=== PATIENT | male | born 1990 | race Caucasian/White ===

== ENCOUNTER 2017-02-19 21:20 | Emergency (ER) | payer SELFPAY ==
[2017-02-19 21:32] VITALS: TEMP 98.2
--- NOTE | 2017-02-19 22:56 | ED PDOC ---
Arrival/HPI - General Chief Complaint: Substance Abuse Time Seen by Provider: 02/19/17 22:17 Historian: Patient - History of Present Illness Narrative History of Present Illness (Text): 02/19/17 22:49 Tootie Dobbins is a 26 year old male, whose past medical history includes substance , who presents to the ED after injecting MDMA earlier tonight. Patient states he feels very hyper and is unable to settle down. Patient denies any fever, chills, chest pain, shortness of breath, abdominal pain, nausea, vomiting, diarrhea, back pain, neck pain, headache, dizziness, or any other complaints. Time/Duration: Other (tonight) Symptom Onset: Gradual Symptom Course: Unchanged Activities at Onset: Rest, Light Context: Home Past Medical History - Provider Review Nursing Documentation Reviewed: Yes - Infectious Disease Hx of Infectious Diseases: None - Psychiatric Hx Anxiety: No Hx Bipolar Disorder: No Hx Depression: No Hx Post Traumatic Stress Disorder: No Hx Schizophrenia: No Hx Substance Use: No - Anesthesia Hx Anesthesia: No Hx Anesthesia Reactions: No Hx Malignant Hyperthermia: No Family/Social History - Physician Review Nursing Documentation Reviewed: Yes Family/Social History: Unknown Family HX Smoking Status: Never Smoked Hx Alcohol Use: No Hx Substance Use: No Allergies/Home Meds Allergies/Adverse Reactions: Allergies No Known Allergies Allergy (Verified 09/29/15 11:50) Review of Systems - Physician Review All systems were reviewed & negative as marked: Yes - Review of Systems Constitutional: Normal. absent: Fevers Eyes: Normal ENT: Normal Respiratory: Normal. absent: SOB, Cough Cardiovascular: Normal. absent: Chest Pain Gastrointestinal: Normal. absent: Abdominal Pain, Diarrhea, Nausea, Vomiting Genitourinary Male: Normal. absent: Dysuria, Frequency, Hematuria, Urinary Output Changes Musculoskeletal: Normal. absent: Back Pain, Neck Pain Skin: Normal. absent: Rash Neurological: Normal. absent: Headache, Dizziness Endocrine: Normal Hemo/Lymphatic: Normal Psychiatric: Other (+substance abuse) Physical Exam Vital Signs Reviewed: Yes Vital Signs Temp Pulse Resp BP Pulse Ox 02/20/17 02:43 91 H 22 110/58 L 98 02/20/17 01:22 98 H 20 104/50 L 98 02/20/17 00:58 100 H 22 103/61 98 02/20/17 00:30 116 H 18 98 02/19/17 23:01 73 14 138/87 99 06/27/17 21:31 98.2 F 136 H 22 126/71 98 Temperature: Afebrile Blood Pressure: Normal Pulse: Tachycardic Respiratory Rate: Normal Appearance: Positive for: Well-Appearing, Non-Toxic, Comfortable Pain Distress: None Mental Status: Positive for: Alert and Oriented X 3 - Systems Exam Head: Present: Atraumatic, Normocephalic Pupils: Present: PERRL Extroacular Muscles: Present: EOMI Conjunctiva: Present: Normal Mouth: Present: Moist Mucous Membranes Neck: Present: Normal Range of Motion Respiratory/Chest: Present: Clear to Auscultation, Good Air Exchange. No: Respiratory Distress, Accessory Muscle Use Cardiovascular: Present: Normal S1, S2, Tachycardic. No: Murmurs Abdomen: Present: Normal Bowel Sounds. No: Tenderness, Distention, Peritoneal Signs Back: Present: Normal Inspection Upper Extremity: Present: Normal Inspection. No: Cyanosis, Edema Lower Extremity: Present: Normal Inspection. No: Edema Neurological: Present: GCS=15, CN II-XII Intact, Speech Normal Skin: Present: Warm, Dry, Normal Color. No: Rashes Psychiatric: Present: Alert, Oriented x 3, Other (Excitable) Medical Decision Making ED Course and Treatment: 02/19/17 22:49 Impression: 26 year old male brought in for substance abuse. Differential Diagnosis included but are not limited to: substance abuse Plan: -- Labs, alcohol level -- Urine drug screen -- Reassess and disposition Progress Notes: Reviewed EKG, sinus tachycardia at [address]-segment elevations or depressions, no T-wave inversions, normal intervals. 02/20/17 02:35 Pt is well-appearing, no acute distress. Mother in ED to take pt home. Pt d/c home under custody of mother. - Lab Interpretations Lab Results: 02/19/17 23:10 02/19/17 23:10 Lab Results 02/20/17 00:04: Urine Opiates Screen Negative, Urine Methadone Screen Negative, Ur Barbiturates Screen Negative, Ur Phencyclidine Scrn Negative, Ur Amphetamines Screen Negative, U Benzodiazepines Scrn Negative, U Oth Cocaine Metabols Negative, U Cannabinoids Screen Negative 02/19/17 23:10: Sodium 134, Potassium 4.5, Chloride 99, Carbon Dioxide 27, Anion Gap 13, BUN 12, Creatinine 0.8, Est GFR ( Amer) > 60, Est GFR (Non- Af Amer) > 60, Random Glucose 90, Calcium 9.6 02/19/17 23:10: WBC 7.4, RBC 4.77, Hgb 14.4, Hct 40.4 L, MCV 84.7, MCH 30.2, MCHC 35.6, RDW 13.1, Plt Count 318, MPV 8.9 02/19/17 23:10: Alcohol, Quantitative < 10 I have reviewed the lab results: Yes - EKG Interpretation Interpreted by ED Physician: Yes Type: 12 lead EKG - Medication Orders Current Medication Orders: Discontinued Medications Lorazepam (Ativan) 2 mg IM ONCE ONE Stop: 02/20/17 00:12 Last Admin: 02/20/17 00:16 Dose: 2 mg - Scribe Statement The provider has reviewed the documentation as recorded by the Obi Mooney Provider Attestation: All medical record entries made by the Obi were at my direction and personally dictated by me. I have reviewed the chart and agree that the record accurately reflects my personal performance of the history, physical exam, medical decision making, and the department course for this patient. I have also personally directed, reviewed, and agree with the discharge instructions and disposition. Disposition/Present on Arrival - Present on Arrival Any Indicators Present on Arrival: No History of DVT/PE: No History of Uncontrolled Diabetes: No Urinary Catheter: No History of Decub. Ulcer: No History Surgical Site Infection Following: None - Disposition Have Diagnosis and Disposition been Completed?: Yes Diagnosis: Drug abuse Disposition: HOME/ ROUTINE Disposition Time: 02:49 Patient Plan: Discharge Condition: STABLE Discharge Instructions (ExitCare): Methamphetamine Abuse (ED) Referrals: PCP,NO [Primary Care Provider] - Follow up with primary [facility] [Outside] - Follow up with primary
[2017-02-19 23:27] LABS: HEMATOCRIT 40.4 % (42.0-52.0); MEAN CELL VOLUME 84.7 fL (80.0-105.0); MEAN CORPUSCULAR HEMOGLOBIN 30.2 pg (25.0-35.0); MEAN CORPUSCULAR HGB CONC 35.6 g/dl (31.0-37.0); MEAN PLATELET VOLUME 8.9 fl (7.0-11.0); RED CELL DISTRIBUTION WIDTH 13.1 % (11.5-14.5); WHITE BLOOD COUNT 7.4 10^3/ul (4.5-11.0)
[2017-02-19 23:33] LABS: BLOOD UREA NITROGEN 12 mg/dL (7-21); CALCIUM 9.6 mg/dL (8.4-10.5); CARBON DIOXIDE 27 mmol/L (21-33); CHLORIDE 99 mmol/L (98-107); GFR AFRICAN-AMERICAN > 60; GLUCOSE,RANDOM 90 mg/dL (70-110); POTASSIUM 4.5 mmol/L (3.6-5.0); SODIUM 134 mmol/L (132-148)
[2017-02-20 00:30] VITALS: O2SAT 98
[2017-02-20 02:44] VITALS: BP 110/58; PULSE 91; RESP 22
--- NOTE | 2017-02-20 11:05 | CARD ---
APPROVED REPORT EKG Measurement Heart [id number] <Conclusion> Sinus tachycardia Otherwise normal ECG
== END 2017-02-20 02:56 | disposition home or self-care (01) ==
LOC: ED 21:20
DX: F19.10 Other psychoactive substance abuse, uncomplicated (principal)
CPT/HCPCS: 80048; 85027; 93005; 96372; 99284; G0480; J2060

== ENCOUNTER 2017-03-30 01:44 | Emergency (ER) | payer OTHER ==
[2017-03-30 01:57] VITALS: BMI 22.4
[2017-03-30 02:03] VITALS: RESP 16; TEMP 97.9
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
[2017-03-30] MEDS ORDERED: Oxycodone/Acetaminophen 5/325 mg Tab PO STA (04:43)
[2017-03-30 05:33] VITALS: BP 115/67; PULSE 82; O2SAT 99
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
== END 2017-03-30 05:04 | disposition home or self-care (01) ==
LOC: ED 01:44
DX: S99.921A Unspecified injury of right foot, initial encounter (principal); V49.9XXA Car occupant (driver) (passenger) injured in unspecified traffic accident, initial encounter
CPT/HCPCS: 73630; 96372; 99284; J1885

== ENCOUNTER 2017-05-11 19:41 | Emergency (ER) | payer OTHER ==
[2017-05-11 19:56] VITALS: BMI 23.7
[2017-05-11 20:35] VITALS: TEMP 98.3
[2017-05-11 21:05] LABS: BASO # 0.02 K/mm3 (0.0-2.0); BASO % 0.2 % (0.0-3.0); EOS # 0.1 (0.0-0.7); EOS % 1.3 % (1.5-5.0); GRAN # 4.37 (1.4-6.5); GRAN % 52.8 % (50.0-68.0); HEMATOCRIT 42.3 % (42.0-52.0); LYMPH # 2.8 (1.2-3.4); LYMPH % 33.5 % (22.0-35.0); MEAN CELL VOLUME 87.4 fl (80.0-105.0); MEAN CORPUSCULAR HGB CONC 35.5 g/dl (31.0-37.0); MEAN PLATELET VOLUME 9.3 fl (7.0-11.0); MONO % 12.2 % (1.0-6.0); RED CELL DISTRIBUTION WIDTH 12.6 % (11.5-14.5); WHITE BLOOD COUNT 8.3 10^3/ul (4.5-11.0)
[2017-05-11 21:10] LABS: ALB/GLOB RATIO 1.2 (1.1-1.8); ALKALINE PHOSPHATASE 117 U/L (38-126); ALT/SGPT 284 U/L (7-56); AST/SGOT 141 U/L (17-59); BILIRUBIN,TOTAL 0.9 mg/dL (0.2-1.3); BLOOD UREA NITROGEN 14 mg/dL (7-21); CALCIUM 9.5 mg/dL (8.4-10.5); CARBON DIOXIDE 30 mmol/L (21-33); CHLORIDE 101 mmol/L (98-107); GFR AFRICAN-AMERICAN > 60; GLUCOSE,RANDOM 101 mg/dL (70-110); POTASSIUM 4.1 mmol/L (3.6-5.0); SODIUM 142 mmol/L (132-148); TOTAL PROTEIN 8.1 g/dL (5.8-8.3)
[2017-05-11 21:15] LABS: PH,URINE 5.5 (4.7-8.0); URINE BILIRUBIN NEGATIVE (NEGATIVE); URINE BLOOD MODERATE (NEGATIVE); URINE GLUCOSE (UA) NEGATIVE (NEGATIVE); URINE KETONE NEGATIVE (NEGATIVE); URINE LEUKOCYTE ESTERASE NEGATIVE Leu/uL (NEGATIVE); URINE PROTEIN TRACE mg/dL (<30 mg/dL)
[2017-05-11 21:17] LABS: URINE APPEARANCE CLEAR (CLEAR); URINE COLOR YELLOW (YELLOW)
[2017-05-11 21:20] LABS: URINE BACTERIA MANY (NEG); URINE EPITHELIAL CELLS 0 - 2 /hpf (0-5); URINE RBC 15 - 20 /hpf (0-2)
[2017-05-11 21:21] LABS: URINE AMORPHOUS SEDIMENT FEW
--- NOTE | 2017-05-11 21:52 | ED PDOC ---
Arrival/HPI - History of Present Illness Time/Duration: Prior to Arrival Symptom Course: Unchanged Quality: Other (intoxication) Activities at Onset: Rest Context: Home, Work <Jim Rockwell - Last Filed: 05/11/17 23:16> <Layne Orta - Last Filed: 05/11/17 23:18> - General Chief Complaint: Substance Abuse Time Seen by Provider: 05/11/17 19:51 - History of Present Illness Narrative History of Present Illness (Text): Patient is a 26 year old male with a past history of MDMA abuse who [place] [facility] [place] with complaints of hyperactivity and insomnia secondary to MDMA abuse. Patient states he was able to stay off of MDMA for 1.5 months but made a new friend from work who offered it to him for free. Patient broke his 1.5 months of sobriety this past Saturday. Since then patient has taken the drug on and off. 05/11/17 21:52 (Jim Rockwell) Past Medical History - Provider Review Nursing Documentation Reviewed: Yes - Infectious Disease Hx of Infectious Diseases: None - Cardiac Hx Cardiac Disorders: No - Pulmonary Hx Respiratory Disorders: No - Neurological Hx Neurological Disorder: No - HEENT Hx HEENT Disorder: No - Renal Hx Renal Disorder: No - Endocrine/Metabolic Hx Endocrine Disorders: No - Hematological/Oncological Hx Blood Disorders: No - Integumentary Hx Dermatological Disorder: No - Musculoskeletal/Rheumatological Hx Musculoskeletal Disorders: No - Gastrointestinal Hx Gastrointestinal Disorders: No - Genitourinary/Gynecological Hx Genitourinary Disorders: No - Psychiatric Hx Anxiety: Yes Hx Bipolar Disorder: No Hx Depression: No Hx Post Traumatic Stress Disorder: No Hx Schizophrenia: No Hx Substance Use: Yes - Anesthesia Hx Anesthesia: No Hx Anesthesia Reactions: No Hx Malignant Hyperthermia: No <Jim Rockwell - Last Filed: 05/11/17 23:16> Family/Social History - Physician Review Nursing Documentation Reviewed: Yes Smoking Status: Current Some Days Smoker Hx Alcohol Use: Yes Hx Substance Use: Yes Substance used: aristides <Jim Rockwell - Last Filed: 05/11/17 23:16> - Physician Review Nursing Documentation Reviewed: Yes Family/Social History: Unknown Family HX <Layne Orta - Last Filed: 05/11/17 23:18> Allergies/Home Meds <Jim Rockwell - Last Filed: 05/11/17 23:16> <Layne Orta - Last Filed: 05/11/17 23:18> Allergies/Adverse Reactions: Allergies No Known Allergies Allergy (Verified 05/11/17 19:56) Home Medications: Home Meds Medication Instructions Recorded Confirmed LORazepam [Ativan] 2 mg PO ONCE PRN 05/11/17 05/11/17 Review of Systems - Physician Review All systems were reviewed & negative as marked: Yes - Review of Systems Systems not reviewed;Unavailable: Acuity of Condition Constitutional: absent: Fatigue, Weight Change Eyes: absent: Vision Changes, Photophobia ENT: absent: Hearing Changes, Tinnitus Cardiovascular: absent: Chest Pain, Palpitations Gastrointestinal: absent: Abdominal Pain, Stool Changes Genitourinary Male: absent: Dysuria, Frequency Neurological: absent: Headache, Dizziness Psychiatric: Anxiety. absent: Suicidal Ideation <Jim Rockwell - Last Filed: 05/11/17 23:16> Physical Exam - Physical Exam Physical Exam Limitations: Intoxication Vital Signs Reviewed: Yes Temperature: Afebrile Blood Pressure: Normal Pulse: Regular Respiratory Rate: Normal Appearance: Positive for: Ill-Appearing Mental Status: Positive for: other (intoxicated) - Systems Exam Head: Present: Atraumatic, Normocephalic Extroacular Muscles: Present: EOMI Mouth: Present: Moist Mucous Membranes. No: Drooling Nose (External): Present: Atraumatic. No: Abrasion Neck: Present: Normal Range of Motion Respiratory/Chest: Present: Clear to Auscultation, Good Air Exchange. No: Respiratory Distress Cardiovascular: Present: Regular Rate and Rhythm, Normal S1, S2. No: Murmurs Abdomen: Present: Normal Bowel Sounds. No: Tenderness, Distention Upper Extremity: Present: Normal Inspection Lower Extremity: Present: Normal Inspection Skin: Present: Warm, Normal Color Psychiatric: Present: Alert, Oriented x 3 <Jim Rockwell - Last Filed: 05/11/17 23:16> Medical Decision Making <Jim Rockwell - Last Filed: 05/11/17 23:16> <Layne Orta - Last Filed: 05/11/17 23:18> ED Course and Treatment: Assessment 26 year old male presenting with MDMA intoxication Plan - EKG - CBC, CMP, Drug screen, UA - PES 05/11/17 21:57 (Jim Rockwell) In agreement with resident note, which includes further HPI details. Patient was seen and evaluated with resident, came up with plan and treatment together. Pt, whose past medical history inclides substance abuse, presented for hyperactivity and insomnia after using MDMA. 05/11/17 22:25 Patient medically cleared for psych eval. Awaiting PES eval. 05/11/17 23:17 [place] [facility] [place] 05/11/17 23:[address] Barreto. (Layne Orta) - Lab Interpretations Lab Results: 05/11/17 20:45 05/11/17 20:45 Lab Results 05/11/17 21:04: Urine Opiates Screen Negative, Urine Methadone Screen Negative, Ur Barbiturates Screen Negative, Ur Phencyclidine Scrn Negative, Ur Amphetamines Screen Negative, U Benzodiazepines Scrn Negative, U Oth Cocaine Metabols Negative, U Cannabinoids Screen Positive H 05/11/17 21:04: Urine Color Yellow, Urine Appearance Clear, Urine pH 5.5, Ur Specific [place] >= 1.030, Urine Protein Trace H, Urine Glucose (UA) Negative, Urine Ketones Negative, Urine Blood Moderate H, Urine Nitrate Negative, Urine Bilirubin Negative, Urine Urobilinogen 4.0 H, Ur Leukocyte Esterase Negative, Urine RBC 15 - 20, Urine WBC 1 - 3, Ur Epithelial Cells 0 - 2, Amorphous Sediment Few, Urine Bacteria Many, Urine Other Fiber 05/11/17 20:45: Alcohol, Quantitative < 10 05/11/17 20:45: Sodium 142, Potassium 4.1, Chloride 101, Carbon Dioxide 30, Anion Gap 15, BUN 14, Creatinine 0.9, Est GFR ( Amer) > 60, Est GFR (Non- Af Amer) > 60, Random Glucose 101, Calcium 9.5, Total Bilirubin 0.9, AST 141 H, ALT 284 H, Alkaline Phosphatase 117, Total Creatine Kinase 334 H, CK-MB (CK-2) 2.2, CK-MB (CK-2) % Cancelled, Total Protein 8.1, Albumin 4.5, Globulin 3.7, Albumin/Globulin Ratio 1.2 05/11/17 20:45: WBC 8.3, RBC 4.84, Hgb 15.0, Hct 42.3, MCV 87.4, MCH 31.0, MCHC 35.5, RDW 12.6, Plt Count 296, MPV 9.3, Gran % 52.8, Lymph % (Auto) 33.5, [place] % (Auto) 12.2 H, Eos % (Auto) 1.3 L, Baso % (Auto) 0.2, Gran # 4.37, Lymph # 2.8 , [place] # 1.0 H, Eos # 0.1, Baso # 0.02 - RAD Interpretation Radiology Orders: 05/11/17 20:13 CHEST PORTABLE [RAD] Stat - Medication Orders Current Medication Orders: Clonazepam (Klonopin) 1 mg PO STAT STA PRN Reason: Protocol Stop: 05/11/17 23:18 Discontinued Medications Lorazepam (Ativan) 1 mg PO ONCE ONE PRN Reason: Protocol Stop: 05/11/17 20:44 Last Admin: 05/11/17 20:50 Dose: 1 mg - PA / FIRE CAPTAIN / Resident Statement / has reviewed & agrees with the documentation as recorded. / has examined the patient and agrees with the treatment plan. <Layne Orta - Last Filed: 05/11/17 23:18> Disposition/Present on Arrival - Present on Arrival Any Indicators Present on Arrival: No History of DVT/PE: No History of Uncontrolled Diabetes: No Urinary Catheter: No History of Decub. Ulcer: No History Surgical Site Infection Following: None - Disposition Have Diagnosis and Disposition been Completed?: No Disposition Time: 23:15 <Jim Rockwell - Last Filed: 05/11/17 23:16> <Layne Orta - Last Filed: 05/11/17 23:18> - Disposition Diagnosis: MDMA abuse Patient Problems: Current Active Problems Problem Status Onset MDMA abuse Acute Condition: STABLE Referrals: PCP,NO [Primary Care Provider] - Follow up with primary Forms: [employer] (Indonesian)
--- NOTE | 2017-05-11 23:22 | ED PDOC ---
Medical Decision Making - [place] of [place] [facility] [place] Course and Treatment: 05/12/17 09:31 Patient with family at beside. Ambulatory. Calm. Cooperative. No respiratory distress. CV stable. Denies abdominal pain. Denies urinary symptoms. NV intact. Awaiting screeners. (Nidhi Randall) 05/11/17 23:00 Case endorsed to me by Dr. Orta, pending [facility] PES screening. 05/12/17 02:27 Pt seen and evaluated by [facility] PES screener in Emergency room. Pt accepted for involuntary admission at [facility] [place] by psychiatrist, Dr. Sanders. (Justin Barreto) - Lab Interpretations Lab Results: 05/11/17 20:45 05/11/17 20:45 Lab Results 05/11/17 21:04: Urine Opiates Screen Negative, Urine Methadone Screen Negative, Ur Barbiturates Screen Negative, Ur Phencyclidine Scrn Negative, Ur Amphetamines Screen Negative, U Benzodiazepines Scrn Negative, U Oth Cocaine Metabols Negative, U Cannabinoids Screen Positive H 05/11/17 21:04: Urine Color Yellow, Urine Appearance Clear, Urine pH 5.5, Ur Specific [place] >= 1.030, Urine Protein Trace H, Urine Glucose (UA) Negative, Urine Ketones Negative, Urine Blood Moderate H, Urine Nitrate Negative, Urine Bilirubin Negative, Urine Urobilinogen 4.0 H, Ur Leukocyte Esterase Negative, Urine RBC 15 - 20, Urine WBC 1 - 3, Ur Epithelial Cells 0 - 2, Amorphous Sediment Few, Urine Bacteria Many, Urine Other Fiber 05/11/17 20:45: Alcohol, Quantitative < 10 05/11/17 20:45: Sodium 142, Potassium 4.1, Chloride 101, Carbon Dioxide 30, Anion Gap 15, BUN 14, Creatinine 0.9, Est GFR ( Amer) > 60, Est GFR (Non- Af Amer) > 60, Random Glucose 101, Calcium 9.5, Total Bilirubin 0.9, AST 141 H, ALT 284 H, Alkaline Phosphatase 117, Total Creatine Kinase 334 H, CK-MB (CK-2) 2.2, CK-MB (CK-2) % Cancelled, Total Protein 8.1, Albumin 4.5, Globulin 3.7, Albumin/Globulin Ratio 1.2 05/11/17 20:45: WBC 8.3, RBC 4.84, Hgb 15.0, Hct 42.3, MCV 87.4, MCH 31.0, MCHC 35.5, RDW 12.6, Plt Count 296, MPV 9.3, Gran % 52.8, Lymph % (Auto) 33.5, [place] % (Auto) 12.2 H, Eos % (Auto) 1.3 L, Baso % (Auto) 0.2, Gran # 4.37, Lymph # 2.8 , [place] # 1.0 H, Eos # 0.1, Baso # 0.02 - RAD Interpretation Radiology Orders: 05/11/17 20:13 CHEST PORTABLE [RAD] Stat - Medication Orders Current Medication Orders: Discontinued Medications Alprazolam (Xanax) 0.25 mg PO STAT STA PRN Reason: Protocol Stop: 05/12/17 00:03 Last Admin: 05/12/17 00:17 Dose: 0.25 mg Clonazepam (Klonopin) 1 mg PO STAT STA PRN Reason: Protocol Stop: 05/11/17 23:18 Last Admin: 05/11/17 23:39 Dose: 1 mg Lorazepam (Ativan) 1 mg PO ONCE ONE PRN Reason: Protocol Stop: 05/11/17 20:44 Last Admin: 05/11/17 20:50 Dose: 1 mg Disposition/Present on Arrival - Present on Arrival Any Indicators Present on Arrival: No History of DVT/PE: No History of Uncontrolled Diabetes: No Urinary Catheter: No History of Decub. Ulcer: No History Surgical Site Infection Following: None - Disposition Have Diagnosis and Disposition been Completed?: Yes Disposition Time: 07:00 - Disposition Diagnosis: MDMA abuse Disposition: Transfer [facility] [place] Condition: STABLE Referrals: PCP,NO [Primary Care Provider] - Follow up with primary Forms: [employer] (Iranian)
--- NOTE | 2017-05-12 03:55 | RAD ---
EXAM: XR Chest, 1 View CLINICAL HISTORY: 26 years old, male; Signs and symptoms; Other: Psych, anxiety TECHNIQUE: Frontal view of the chest. COMPARISON: No relevant prior studies available. FINDINGS: Limitations: Radiographic technique - mild. Lungs: No consolidation. Pleural space: No pleural effusion. No pneumothorax. Heart: No cardiomegaly. Mediastinum: Unremarkable. Bones/joints: No acute fracture. IMPRESSION: 1. No definite acute cardiopulmonary disease.
[2017-05-12 08:27] VITALS: RESP 16
[2017-05-12 10:59] LABS: URINE BILIRUBIN SMALL (NEGATIVE); URINE BLOOD SMALL (NEGATIVE); URINE GLUCOSE (UA) NEGATIVE (NEGATIVE); URINE KETONE NEGATIVE (NEGATIVE); URINE LEUKOCYTE ESTERASE NEGATIVE Leu/uL (NEGATIVE); URINE PROTEIN TRACE mg/dL (<30 mg/dL)
[2017-05-12 11:15] LABS: URINE APPEARANCE CLEAR (CLEAR); URINE COLOR YELLOW (YELLOW)
[2017-05-12 11:29] LABS: URINE EPITHELIAL CELLS 0 - 2 /hpf (0-5); URINE WBC 0 - 2 /hpf (0-6)
[2017-05-12 11:43] VITALS: BP 107/94; PULSE 102; O2SAT 96
--- NOTE | 2017-05-12 13:43 | CARD ---
APPROVED REPORT EKG Measurement Heart [id number] <Conclusion> Sinus tachycardia Otherwise normal ECG
== END 2017-05-12 11:35 | disposition short-term general hospital (02) ==
LOC: ED 19:41
DX: F16.10 Hallucinogen abuse, uncomplicated (principal)